=== PATIENT | male | born 1975 | race Two or more races ===

== ENCOUNTER 2017-11-09 20:40 | Emergency (ER) | payer OTHER ==
[~2017-11-09] VITALS: Ht 12.7 cm; Wt 84.0 kg
[2017-11-09 21:25] VITALS: BP 136/84
== END 2017-11-09 21:50 | disposition home or self-care (01) ==
LOC: ED 21:00
DX: J30.1 Allergic rhinitis due to pollen (principal)
CPT/HCPCS: 71046; 93005; 99284